=== PATIENT | female | born 1965 | race Caucasian/White ===

== ENCOUNTER 2021-10-17 19:42 | Emergency (ER) | payer BC, SELFPAY ==
[2021-10-17 19:52] VITALS: BP 173/97; PULSE 84; RESP 18; TEMP 36.7; O2SAT 97; BMI 45.1
--- NOTE | 2021-10-17 20:32 | XRR_ITS ---
PROCEDURE INFORMATION: Exam: XR Right Shoulder Exam date and time: 10/17/2021 8:32 PM Age: 56 years old Clinical indication: Pain; Shoulder; Right; Additional info: Pain in shoulder, limited rom TECHNIQUE: Imaging protocol: XR Right shoulder. Views: 2 or more views. COMPARISON: No relevant prior studies available. FINDINGS: Bones/joints: Osseous structures are intact. Negative for fracture. Joint spaces are preserved. Limited internal rotation. Soft tissues: Amorphous calcifications in the region of the greater tuberosity of the humerus. XR/XR shoulder RT min 2V* [id number] IMPRESSION: Amorphous calcifications in the region of the greater tuberosity suggestive of calcific tendinitis.
--- NOTE | 2021-10-17 20:34 | W.ED.EXTPRO ---
HPI - Extremity Problem General: Chief complaint: Extremity Problem,Nontraumatic Stated complaint: RT arm pain Time Seen by Provider: 10/17/21 20:00 History of Present Illness: Patient is a 56-year-old female comes to the ED with right shoulder pain. Symptoms started approximately 5 days ago. She denies any known injury or trauma to cause pain. She says her pain starts in her right shoulder and she has episodes where it radiates down into her forearm. She has limited range of motion in shoulder and can only slightly abduct right arm. Limiting right arm movements helps with pain. Denies any numbness or tingling down right arm. Associated symptoms: Deny chest pain, fever(s) or rash Review of Systems Const: Denies: fever(s), chills or fatigue Eyes: Denies: change in vision or eye discomfort ENMT: Denies: throat pain, odynophagia, nasal discharge or nasal congestion Card: Denies: chest pain, palpitations, edema, swelling of feet/ankles, dyspnea on exertion or orthopnea Resp: Denies: dyspnea, productive cough or non-productive cough GI: Denies: abdominal pain, nausea, vomiting, diarrhea, constipation or hematochezia : Denies: flank pain, dysuria or hematuria Musc: Reports: extremity pain (right shoulder) and limited range of motion (right shoulder); Denies: neck pain, back pain or extremity swelling Skin/Breast: Denies: rash or new lesions Neuro: Denies: headache(s), numbness in extremities or weakness in extremities PFS ED PFSH: Medical History No pertinent family history Surgical History No pertinent past surgical history Physical Exam Const: COMMON NORMALS: no acute distress, patient oriented x3 and alert GENERAL APPEARANCE: cooperative and comfortable HENMT: COMMON NORMALS: normocephalic HEAD & SCALP: normocephalic MOUTH: Normal oral and palatal mucosa present THROAT: posterior oropharynx normal and uvula midline Neck/C-Spine: COMMON NORMALS: supple GENERAL: Yes normal visual inspection Resp: COMMON NORMALS: normal respiratory effort, No retractions, No use of accessory muscles and clear to auscultation bilaterally AUSCULTATION: clear to auscultation bilaterally Cardio: COMMON NORMALS: regular rate, regular rhythm, S1 normal heart sound present, S2 normal heart sound present, No gallops present (Cardio), No clicks present (Cardio), No murmurs present (Cardio) and Peripheral pulses 2+ throughout RATE: regular rate RHYTHM: regular rhythm HEART SOUNDS: S1 normal heart sound present and S2 normal heart sound present PERIPHERAL PULSES: Peripheral pulses 2+ throughout GI: COMMON NORMALS: Normal to inspection, nondistended, normoactive bowel sounds present, Soft to palpation, non-tender and no masses PALPATION: Yes Soft to palpation : COMMON NORMALS: Yes no CVA tenderness BLADDER/KIDNEY EXAM: Yes no CVA tenderness Back/Pelvis: COMMON NORMALS: no CVA tenderness Extremity: RIGHT UPPER EXTREMITY: Yes shoulder joint Right shoulder: Yes Right shoulder joint inspection exam (No visible deformity or swelling seen. Tenderness over AC joint), Yes palpation, Yes Right shoulder joint ROM exam (Limited abduction due to pain) and Yes Right shoulder joint neurovascular exam (Intact) Neuro: COMMON NORMALS: patient oriented x3 and moves all extremities SENSORIUM/ORIENTATION: Yes alert Skin: GENERAL SKIN EXAM: dry skin Course Vital Signs: Vital signs: Vital Signs Temperature 98.1 F 10/17/21 19:52 Pulse Rate 78 10/17/21 21:28 Respiratory Rate 18 10/17/21 21:28 Blood Pressure 162/91 10/17/21 21:28 Pulse Oximetry 99 10/17/21 21:28 MDM - Extremity (Nontraumatic) Medical Decision Making Patient is a 56-year-old female comes to the ED with right shoulder pain. Denies any injury or trauma to cause acute pain. Pain has been going on now for the last 5 days. It radiates down into her forearm. Vitals are stable. Exam shows right AC joint tenderness. Limited range of motion due to pain. Neurovascular intact. X-ray of right shoulder shows calcific tendinitis of the greater tuberosity. Patient diagnosed with calcific tendinitis of right shoulder and was discharged home with a sling and a prescription for methocarbamol and Tylenol. She was told to follow-up with their PCP in the next 5 to 7 days for reevaluation. Return to ED precautions given. Patient stood agree with plan. Lab Data Radiology Impressions Shoulder X-Ray 10/17/21 20:32 IMPRESSION: Amorphous calcifications in the region of the greater tuberosity suggestive of calcific tendinitis. Discharge Plan Discharge Patient Disposition: Home Clinical Impression: Calcific tendinitis of right shoulder Condition: Stable Prescriptions: New methocarbamol 750 mg tablet 750 mg PO Q8H PRN (Reason: muscle pain) Qty: 20 0RF Tylenol Arthritis Pain 650 mg tablet extended release 650 mg PO Q8H PRN (Reason: pain) Qty: 30 0RF Discharge Orders: Discharge ED (Routine); Ordered 10/17/21 Ordered By: Jairo Yates Discharge Diet: Regular Discharge Activity: Increase activity as tolerated Patient Instructions: Calcific Tendinitis (ED) Activity Restrictions/Additional Instructions: Follow-up with medical provider as directed in the next 5 to 7 days reevaluation. Apply cold pack on shoulder and elbow symptoms. Wear shoulder sling. Make sure to remove arm from shoulder sling at least 4 times a day and do some range of motion exercises to prevent frozen shoulder. Take medications as prescribed. Methocarbamol is a muscle relaxer and can cause some drowsiness so take at night before going to bed. Return to the ER or your medical provider if condition worsens. Please read and understand discharge instructions. Thank you for choosing [facility] for your healthcare needs today. Please realize this is an emergency room and that we are providing you with a medical screening exam and this may not be complete and all inclusive of all the testing and or work up that you may need to determine your ailment or severity of your illness. It is very important that you follow up as instructed or that you return to the Emergency Department should you have concerns or if your condition changes or worsens in any way. 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
[2021-10-17 21:28] VITALS: BP 162/91; PULSE 78; RESP 18; O2SAT 99
== END 2021-10-17 21:29 | disposition home or self-care (01) ==
PROVIDERS: Emergency Provider Physician Assistant
DX: M75.31 Calcific tendinitis of right shoulder (principal)
CPT/HCPCS: 73030; 99283

== ENCOUNTER 2021-12-08 10:41 | Emergency (ER) | payer BC, SELFPAY ==
[2021-12-08 10:56] VITALS: PULSE 80; RESP 16; TEMP 37.1; O2SAT 96
[2021-12-08 11:00] VITALS: BP 162/95
--- NOTE | 2021-12-08 11:10 | XRR_ITS ---
PROCEDURE INFORMATION: Exam: XR Chest Exam date and time: 12/08/2021 11:21 AM Age: 56 years old Clinical indication: Pain; Angina pectoris; Additional info: Chest pain TECHNIQUE: Imaging protocol: XR of the chest. Views: 1 view. COMPARISON: CR (CHEST, ) 10/17/2021 8:38 PM FINDINGS: Lungs: Unremarkable. No consolidation. Pleural spaces: Unremarkable. No pleural effusion. No pneumothorax. Heart/Mediastinum: Unremarkable. No cardiomegaly. Bones/joints: Unremarkable. XR/XR chest 1V portable [id number] IMPRESSION: No acute findings.
--- NOTE | 2021-12-08 11:10 | ECG_ITS ---
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 Measurements Intervals [place] Rate: 86 P: 41 [place]: 212 QRS: 26 QRSD: 91 T: 42 QT: 360 QTc: 431 Interpretive Statements SINUS RHYTHM WITH FIRST DEGREE AV BLOCK LOW QRS VOLTAGE IN PRECORDIAL LEADS [QRS DEFLECTION < 1.0 mV IN CHEST LEADS] No previous ECG available for comparison Electronically Signed On 12-08-2021 22:59:13 CDT by Lisa Chowdary M.D. [id number]
--- NOTE | 2021-12-08 11:32 | W.ED.GENADLT ---
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 Patient says that around 830 this morning, she has had 25 minutes of right-sided dull achy pain. Patient denies any stabbing chest pain, pleuritic chest pain, pressure-like chest pain that is worse with exertion. It is, patient denies any shortness of breath, palpitation, nausea/vomiting, diaphoresis radiation to the arm, shoulder, neck. Patient has no abdominal complaints, diarrhea, melena hematochezia. Patient tells me that 5 years ago she had a prior MO but at that time, she did not have a stent placed. Patient is currently on beta-yamileth for her management. Patient has any smoking, family history of CAD, family history of aneurysm, leg swelling, recent immobilization or travel, or hx of VTE in the past. Onset: 8:30am Duration:25 minutes Location:home Severity:moderate Associated symptoms: Reports chest pain; Deny dyspnea, nausea, rash, palpitations or vomiting Review of Systems Const: Denies: fever(s) or chills Eyes: Denies: change in vision ENMT: Denies: mouth pain Card: Reports: chest pain; Denies: palpitations Resp: Denies: dyspnea or non-productive cough GI: Denies: abdominal pain, nausea, vomiting or diarrhea : Denies: dysuria Musc: Denies: extremity pain Skin/Breast: Denies: rash or new lesions Neuro: Denies: weakness in extremities Psych: Reports: other (Normal mood) Tuan/Lymph: Denies: easy bruising PFSH ED PFSH: Medical History No pertinent family history Surgical History No pertinent past surgical history Social History (Updated 12/08/21 @ 11:34 by Angelica Cardoza MD) Smoking and tobacco status: never smoked Alcohol intake: never Substance/Drug Use: never Physical Exam Const: COMMON NORMALS: alert HENMT: COMMON NORMALS: atraumatic HEAD & SCALP: atraumatic MOUTH: moist mucous membranes not abnormal Eye: COMMON NORMALS: EOMs intact bilaterally and conjunctivae normal CONJUNCTIVA: Yes conjunctivae normal Neck/C-Spine: COMMON NORMALS: full ROM and supple Resp: COMMON NORMALS: normal respiratory effort and clear to auscultation bilaterally AUSCULTATION: clear to auscultation bilaterally Cardio: COMMON NORMALS: regular rate RATE: regular rate OTHER: 2+ radial pulses b/l GI: COMMON NORMALS: Soft to palpation and non-tender PALPATION: Yes Soft to palpation Extremity: COMMON NORMALS: full ROM OTHER: no lower extremity swelling Neuro: SENSORIUM/ORIENTATION: Yes alert MOTOR EXAM: No Abnormal motor strength present and Other motor observations present (no focal motor deficits) Psych: COMMON NORMALS: speech normal SPEECH: Yes normal speech MOOD & AFFECT: Yes euthymic mood Course Vital Signs: Vital signs: Vital Signs Temperature 98.8 F 12/08/21 10:56 Pulse Rate 81 12/08/21 14:22 Respiratory Rate 18 12/08/21 14:22 Blood Pressure 168/96 12/08/21 14:22 Pulse Oximetry 98 12/08/21 14:22 MDM - General Adult Medical Decision Making 56-year-old female with history of prior MO presenting to the emergency room for evaluation of new onset of chest pain at 830 this morning lasting for 25 minutes. Patient's physical exam is unremarkable. EKG is nonischemic x1. Troponin x2 within normal. Patient received aspirin nitro in the emergency room without any further complaints of chest pain. 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 Doubt ACS/PE or other emergent causes of chest pain. No suspicion for aortic dissection given no widened mediastinum, 2+ upper extremity pulses, or tearing pain. No suspicion for PE given no pleuritic chest pain, recent immobilization or surgery hemoptysis, or other VTE risk factors. EKG is non-ischemic. XR normal. At 1:45pm, I performed shared decision-making with patient regarding admission versus discharge today. I discussed if the patient patient's risk factors that she would better off admitted to the hospital. However, patient declined citing desire to have this done outpatient. Patient was tells me that she has to handle her car to her who needs it this afternoon. Patient elects to go home and with close follow-up with cardiology and outpatient stress test. I explained the risks of leaving the hospital today including lethal arrythemia, MO, and even . Patient verbalizes understanding of these discussed risk and elect for the alternative of following up urgently. Patient verbalizes understanding to return for any worsening symptoms including chest pain, dyspnea, fatigue, arm pain/jaw pain/back pain or any new or concerning issues. I have given patient follow up with our rn field case manager to be seen by our outpatient Cardiology for chest pain. Patient aware of a call from our rn field case manager to schedule for appointment(s) and verbalizes understanding of the importance of following up. I have given patient follow up with our rn field case manager to have patient be scheduled for outpatient stress test. Patient aware of a call from our rn field case manager to schedule for appointment(s) and verbalizes understanding of the importance of following up. Rx tylenol PRN pain Disposition: Discharge. Patient counseled regarding diagnostic impression, treatment plan. Patient given ED strict return precautions to return for continuation, worsening, or development of new symptoms. Instructed to f/u w/ PCP regarding symptoms today. Patient verbalized understanding. Lab Data : 12/08/21 11:25 12/08/21 11:25 Radiology Impressions Chest X-Ray 12/08/21 11:10 IMPRESSION: No acute findings. Laboratory Results WBC 5.5 10^3/uL (4.0-10.0) 12/08/21 11:25 RBC 4.36 10^6/uL (4.1-5.3) 12/08/21 11:25 Hgb 13.3 g/dL (11.5-15.3) 12/08/21 11:25 Hct 39.6 % (37.0-47.0) 12/08/21 11:25 MCV 90.8 fl (81-99) 12/08/21 11:25 MCH 30.5 pg (28.0-34.0) 12/08/21 11:25 MCHC 33.6 g/dL (30.0-36.0) 12/08/21 11:25 RDW 12.4 % (12.1-15.1) 12/08/21 11:25 Plt Count 261 10^3/cmm (130-400) 12/08/21 11:25 MPV 10.7 fL (7.4-10.4) H 12/08/21 11:25 Neut % (Auto) 71.0 % 12/08/21 11:25 Lymph % (Auto) 20.2 % 12/08/21 11:25 [place] % (Auto) 6.4 % 12/08/21 11:25 Eos % (Auto) 0.9 % 12/08/21 11:25 Baso % (Auto) 1.1 % 12/08/21 11:25 Neut # (Auto) 3.87 10^3/uL (1.8-7.7) 12/08/21 11:25 Lymph # (Auto) 1.1 10^3/uL (0.8-4.8) 12/08/21 11:25 [place] # (Auto) 0.4 10^3/uL (0.2-0.9) 12/08/21 11: Eos # (Auto) 0.1 10^3/uL (0.0-0.8) 12/08/21 11: Baso # (Auto) 0.1 10^3/uL (0.0-0.1) 12/08/21 11:25 Nucleated RBC % (auto) 0 % 12/08/21 11: Nucleated RBCs # 0.0 /100WBC 12/08/21 11:25 Sodium 135 mmol/L (136-145) L 12/08/21 11:25 Potassium 4.4 mmol/L (3.5-5.1) 12/08/21 11:25 Chloride 99 mmol/L (98-107) 12/08/21 11:25 Carbon Dioxide 25 mmol/L (22-29) 12/08/21 11:25 Anion Gap 15.4 (5-19) 12/08/21 11:25 BUN 11 mg/dL (6-20) 12/08/21 11:25 Creatinine 0.6 mg/dL (0.5-0.9) 12/08/21 11:25 GFR Calculation 102.7 mL/min (90-130) 12/08/21 11:25 Glucose 109 mg/dL (65-115) 12/08/21 11:25 Calculated Osmolality 280 mOsm/kg (285-295) L 12/08/21 11:25 Calcium 9.1 mg/dL (8.5-10.5) 12/08/21 11:25 Troponin T Baseline 8 ng/L (0-10) 12/08/21 11:25 Troponin T 120 Minute 6.23 ng/L (0-10) 12/08/21 13:03 Delta Troponin T -1.77 ABS# (0-10) L 12/08/21 13:03 Imaging Data Other Imaging: Radiologist's impression: [address] [address] XRay Report Signed Patient: Neida Dugan Unit #: [id number] : 1965 Age/Sex: 56 / F ADM Date: 12/08/21 Loc: ER Room/Bed: Attending Dr: Ordering Provider/Ordering MD: Angelica Cardoza MD Date of Service: 12/08/21 Procedure(s): XR chest 1V portable [id number] Accession Number(s): [id number] Report Number: [id number] PROCEDURE INFORMATION: Exam: XR Chest Exam date and time: 12/08/2021 11:21 AM Age: 56 years old Clinical indication: Pain; Angina pectoris; Additional info: Chest pain TECHNIQUE: Imaging protocol: XR of the chest. Views: 1 view. COMPARISON: CR (CHEST, ) 10/17/2021 8:38 PM FINDINGS: Lungs: Unremarkable. No consolidation. Pleural spaces: Unremarkable. No pleural effusion. No pneumothorax. Heart/Mediastinum: Unremarkable. No cardiomegaly. Bones/joints: Unremarkable. XR/XR chest 1V portable [id number] IMPRESSION: No acute findings. ? Dictated By: Bulmaro Gooden MD Signed By: Bulmaro Gooden MD Signed Date/Time: 12/08/21 1240 DD/ 1121 Discharge Plan Discharge Patient Disposition: Home Clinical Impression: Chest pain Condition: Stable Prescriptions: New acetaminophen 500 mg tablet 500 mg PO Q6H PRN (Reason: pain) 5 Days Qty: 20 0RF No Action aspirin 325 mg Tablet 325 mg PO QAM 0RF metoprolol succinate 50 mg tablet extended release 24 hr 50 mg PO QAM 0RF Vitamin C 500 mg Tablet 1,000 mg PO QAM 0RF Vitamin D3 25 mcg (1,000 unit) Capsule 25 mcg PO QAM 0RF Discharge Orders: Discharge ED (Routine); Ordered 12/08/21 Ordered By: Angelica Cardoza Discharge Diet: Advance as tolerated Discharge Activity: Increase activity as tolerated Patient Instructions: Chest Pain (ED) Activity Restrictions/Additional Instructions: Come back to the emergency room if your chest pain worsens, have any fever or chills, worsening shortness of breath, worsening exertional lightheadedness, or any new or concerning complaints. Our rn field case manager will have you follow-up with Cardiology in the next few days. You would be expected to have a phone call with our rn field case manager who will put you on the schedule. You can expect a call from us in the next 2-3 days. If you don't hear from us, call us back in the emergency room at [phone]. 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
[2021-12-08 11:42] LABS: Basophils # 0.1 10^3/uL (0.0-0.1); Basophils % 1.1 %; Eosinophils # 0.1 10^3/uL (0.0-0.8); Eosinophils % 0.9 %; Hematocrit 39.6 % (37.0-47.0); Hemoglobin 13.3 g/dL (11.5-15.3); Lymphocytes # 1.1 10^3/uL (0.8-4.8); Lymphocytes % 20.2 %; Mean Corpuscular HGB Conc 33.6 g/dL (30.0-36.0); Mean Corpuscular Hemoglobin 30.5 pg (28.0-34.0); Mean Corpuscular Volume 90.8 fl (81-99); Mean Platelet Volume 10.7 fL (7.4-10.4); Monocytes # 0.4 10^3/uL (0.2-0.9); Monocytes % 6.4 %; Neutrophils # 3.87 10^3/uL (1.8-7.7); Nucleated Red Blood Cells % 0 %; Platelet Count 261 10^3/cmm (130-400); Red Blood Count 4.36 10^6/uL (4.1-5.3); Red Cell Distribution Width 12.4 % (12.1-15.1); White Blood Count 5.5 10^3/uL (4.0-10.0)
[2021-12-08 12:11] LABS: Troponin(5th) Baseline 8 ng/L (0-10)
[2021-12-08 12:12] LABS: Blood Urea Nitrogen 11 mg/dL (6-20); Calcium 9.1 mg/dL (8.5-10.5); Carbon Dioxide 25 mmol/L (22-29); Chloride 99 mmol/L (98-107); Glomerular Filtration Rate 102.7 mL/min (90-130); Glucose 109 mg/dL (65-115); Osmolality Calculated 280 mOsm/kg (285-295); Sodium 135 mmol/L (136-145)
[2021-12-08 12:14] LABS: Anion Gap 15.4 (5-19); Potassium 4.4 mmol/L (3.5-5.1)
[2021-12-08 13:31] LABS: Troponin 5 2HR 6.23 ng/L (0-10)
[2021-12-08 13:38] VITALS: PULSE 77; RESP 10; O2SAT 95
[2021-12-08 14:07] LABS: Troponin 5 2HR Delta -1.77 ABS# (0-10)
[2021-12-08 14:22] VITALS: BP 168/96; PULSE 81; RESP 18; O2SAT 98
--- NOTE | 2021-12-08 17:10 | ECG_ITS ---
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 Measurements Intervals [place] Rate: 64 P: 4 [place]: 189 QRS: 19 QRSD: 92 T: 38 QT: 394 QTc: 407 Interpretive Statements SINUS RHYTHM Compared to ECG 12/08/2021 11:07:18 First degree AV block no longer present Electronically Signed On 12-08-2021 23:12:07 CDT by Lisa Chowdary M.D. [id number]
--- NOTE | 2021-12-09 11:14 | DCPLANNER ---
Addendum entered by Joanne South 02/16/22 06:15: Patient had a follow up appointment scheduled with heart [facility] - this appointment was cancelled. patient had an out patient stress test scheduled for 02.12.22 - patient did not attend appointment. Addendum entered by Joanne South 12/16/21 14:28: Patient has a follow up appointment scheduled for Friday, January 21, 2022 at 3:[address] Gooden at [facility]. wind plant manager called patient and gave patient the appointment information. Original Note: wind plant manager had message to schedule a follow up appointment for patient with [facility]. wind plant manager sent patients information to the front staff at [facility] for review. Patients information will be printed and reviewed. Clinic will notify manager case management of the scheduled appointment. wind plant manager will call patient with appointment information. wind plant manager also had message to schedule an outpatient stress test. wind plant manager called patient to confirm that patient still wanted the stress test and to confirm who patient sees for her primary care physician. wind plant manager called phone number [phone], unable to speak with patient, a voicemail was left for patient to return manager of case management phone call.
== END 2021-12-08 14:24 | disposition home or self-care (01) ==
PROVIDERS: Emergency Provider Emergency Medicine
DX: R07.9 Chest pain, unspecified (principal); I25.2 Old myocardial infarction
CPT/HCPCS: 71045; 80048; 84484; 85025; 93005; 99284

== ENCOUNTER 2022-06-24 17:08 | Outpatient (CLI) | payer BC, SELFPAY ==
--- NOTE | 2022-06-24 | XRR_ITS ---
PROCEDURE INFORMATION: Exam: XR Lumbosacral Spine Exam date and time: 06/24/2022 5:38 PM Age: 57 years old Clinical indication: Low back pain; Additional info: Low back pain- TECHNIQUE: Imaging protocol: Radiologic exam of the lumbosacral spine. Views: 2 or 3 views. COMPARISON: No relevant prior studies available. FINDINGS: Bones/joints: No acute fracture. Grade 1 anterolisthesis of L4 on L5. Moderate multilevel degenerative changes throughout the lower thoracic and lumbar spine with multilevel disc space narrowing and endplate osteophyte formation as well as lower lumbar facet arthropathy. Soft tissues: Unremarkable. XR/XR lumbar spine f/e only [id number] IMPRESSION: No acute findings. 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
== END 2022-06-24 17:09 | disposition home or self-care (01) ==
LOC: RAD 17:09
PROVIDERS: Visit Provider Nurse Practitioner
DX: M47.896 Other spondylosis, lumbar region (principal); M54.50 Low back pain, unspecified
CPT/HCPCS: 72120

== ENCOUNTER → 2023-01-13 14:28 | Outpatient (BNVA) | payer BC, SELFPAY | PROVIDERS: PCP Nurse Practitioner; Visit Provider Nurse Practitioner | DX: M25.512 Pain in left shoulder (principal) | CPT/HCPCS: 73030 ==

== ENCOUNTER 2023-10-04 23:42 | Emergency (ER) | payer BC, SELFPAY ==
--- NOTE | 2023-10-04 23:47 | XRR_ITS ---
PROCEDURE INFORMATION: Exam: XR Chest Exam date and time: 10/04/2023 11:53 PM Age: 58 years old Clinical indication: Chest wall pain; Additional info: Chest pain TECHNIQUE: Imaging protocol: Radiologic exam of the chest. Views: 1 view. COMPARISON: CR XR chest 1V portable [id number] 12/08/2021 11:21 AM FINDINGS: Lungs: Unremarkable. No consolidation. Pleural spaces: Unremarkable. No pleural effusion. No pneumothorax. Heart/Mediastinum: Unremarkable. No cardiomegaly. Bones/joints: There is right rotator cuff calcific tendinosis. XR/XR chest 1V portable [id number] IMPRESSION: No acute cardiopulmonary process.
[2023-10-04 23:48] VITALS: BP 159/88; PULSE 74; RESP 20; TEMP 36.4; O2SAT 99; BMI 33.3
--- NOTE | 2023-10-04 23:49 | ECG_ITS ---
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 Measurements Intervals [place] Rate: 75 P: 62 [place]: 223 QRS: 80 QRSD: 87 T: 61 QT: 378 QTc: 424 Interpretive Statements SINUS RHYTHM WITH FIRST DEGREE AV BLOCK INTERPRETATION BASED ON A DEFAULT AGE OF 40 YEARS Compared to ECG 12/08/2021 13:06:08 First degree AV block now present Electronically Signed On 10-06-2023 16:29:13 TECHNICAL SUPPORT COORDINATOR by Yogi Greene M.D. [id number]
--- NOTE | 2023-10-05 00:04 | W.ED.ABDPA2 ---
HPI - Abdominal Pain General: Chief Complaint: Abdominal Pain Stated Complaint: cp, indagestion Time Seen by Provider: 10/04/23 23:47 History of Present Illness: Patient presents to the ER with chest pain and indigestion. Patient describes this as epigastric pain that began about 2100. Patient states the pain has been constant ever since describes as a burning and pressure. Patient states she does get this very often but thinks he may have ate something that triggered it tonight. Patient denies any cardiac history other than high blood pressure. Patient denies any nausea vomiting shortness of breath diaphoresis. Review of Systems General: Reports: 10 or more systems reviewed and unremarkable except in HPI and below PFSH ED PFSH: Medical History No pertinent family history Surgical History No pertinent past surgical history Social History Smoking and tobacco/nicotine status: never used tobacco/nicotine Alcohol intake: never Substance/Drug Use: never Physical Exam Const: COMMON NORMALS: no acute distress, average body habitus, patient oriented x3, no limitations, healthy appearing, alert and well nourished HENMT: COMMON NORMALS: normocephalic, atraumatic, hearing grossly normal bilaterally, external ears normal, Normal external nose present, moist oral mucous membranes and oropharynx normal HEAD & SCALP: normocephalic and atraumatic NOSE: Normal external nose present EXTERNAL EAR: Yes external ears normal Neck/C-Spine: COMMON NORMALS: no JVD Chest: COMMONS NORMALS: normal inspection of the chest and normal palpation of entire chest wall Resp: COMMON NORMALS: normal respiratory effort, No retractions, No use of accessory muscles and clear to auscultation bilaterally AUSCULTATION: clear to auscultation bilaterally Cardio: COMMON NORMALS: no JVD, regular rate, regular rhythm, S1 normal heart sound present, S2 normal heart sound present, No gallops present (Cardio), No clicks present (Cardio), No murmurs present (Cardio) and No rub (Cardio) RATE: regular rate RHYTHM: regular rhythm HEART SOUNDS: S1 normal heart sound present and S2 normal heart sound present GI: COMMON NORMALS: Normal to inspection, nondistended, normoactive bowel sounds present, Soft to palpation, No hepatosplenomegaly present and no masses; negative for non-tender (Mildly tender to palpate epigastric) PALPATION: Yes Soft to palpation and Yes No hepatosplenomegaly present Neuro: COMMON NORMALS: patient oriented x3 SENSORIUM/ORIENTATION: Yes alert Course Vital Signs: Vital signs: Vital Signs Temperature 97.6 F 10/04/23 23:48 Pulse Rate 72 10/05/23 00:49 Respiratory Rate 16 10/05/23 00:49 Blood Pressure 142/106 10/05/23 00:49 Pulse Oximetry 97 10/05/23 00:49 Oxygen Delivery Me thod Room Air 10/04/23 23:48 MDM - Abdominal Pain Medical Decision Making Patient was evaluated that had lab workup as well as chest x-ray and abdomen pelvis CT scan. Lab work was essentially benign except for elevated liver enzymes. Chest x-ray showed no acute cardiopulmonary process, abdomen and pelvic CT showed cholelithiasis with suggestive findings of acute cholecystitis. Dr. Ramirez was consulted who agreed to place patient inpatient and we will start her on Zosyn and Toradol and make her n.p.o. Differential Diagnosis Likely abdominal pain; Unlikely acute appendicitis, calculus of kidney, constipation, diverticulitis, endometriosis, gastroenteritis, pancreatitis or small bowel obstruction Medical Records I reviewed the patient's medical records. Lab Data I reviewed the patient's lab results. 10/05/23 00:09 10/05/23 00:09 Labs/Radiology: Radiology Impressions Chest X-Ray 10/04/23 23:47 IMPRESSION: No acute cardiopulmonary process. Abdomen/Pelvis CT 10/05/23 00:51 IMPRESSION: 1. Cholelithiasis with mild surrounding pericholecystic fluid suggestive of acute cholecystitis. 2. Diverticulosis of colon with no changes of diverticulitis. COMMENTS: Consistent with the [place] [employer] [employer]'s Incidental Findings Committee white paper (J Am Caden Radiol 2018): Any incidental renal lesion less than 1 cm or classified as too small to characterize, or any incidental cystic renal lesion characterized as simple-appearing, is likely benign. No follow-up imaging is recommended for these lesions per consensus recommendations based on imaging criteria. Laboratory Results WBC 6.54 10^3/uL (3.29-11.43) 10/05/23 00:09 RBC 4.38 10^6/uL (3.85-5.65) 10/05/23 00:09 Hgb 13.40 g/dL (11.27-16.99) 10/05/23 00:09 Hct 39.8 % (36-47) 10/05/23 00:09 MCV 90.9 fl (85-98) 10/05/23 00:09 MCH 30.6 pg (27-33) 10/05/23 00:09 MCHC 33.7 g/dL (30-55) 10/05/23 00:09 RDW 12.2 % (12.1-15.1) 10/05/23 00:09 Plt Count 225 10^3/cmm (157-399) 10/05/23 00:09 MPV 10.4 fL (7.4-10.4) 10/05/23 00:09 Neut % (Auto) 63.4 % 10/05/23 00:09 Lymph % (Auto) 28.0 % 10/05/23 00:09 [place] % (Auto) 6.1 % 10/05/23 00:09 Eos % (Auto) 2.0 % 10/05/23 00:09 Baso % (Auto) 0.5 % 10/05/23 00:09 Neut # (Auto) 4.15 10^3/uL (1.8-7.7) 10/05/23 00:09 Lymph # (Auto) 1.8 10^3/uL (0.8-4.8) 10/05/23 00:09 [place] # (Auto) 0.4 10^3/uL (0.2-0.9) 10/05/23 00:09 Eos # (Auto) 0.1 10^3/uL (0.0-0.8) 10/05/23 00:09 Baso # (Auto) 0.0 10^3/uL (0.0-0.1) 10/05/23 00:09 Nucleated RBC % (auto) 0 % 10/05/23 00:09 Nucleated RBCs # 0.0 /100WBC 10/05/23 00:09 Sodium 143 mmol/L (136-145) 10/05/23 00:09 Potassium 3.9 mmol/L (3.5-5.1) 10/05/23 00:09 Chloride 104 mmol/L (98-107) 10/05/23 00:09 Carbon Dioxide 28 mmol/L (22-29) 10/05/23 00:09 Anion Gap 14.9 (5-19) 10/05/23 00:09 BUN 17 mg/dL (8-23) 10/05/23 00:09 Creatinine 0.8 mg/dL (0.5-0.9) 10/05/23 00:09 GFR Calculation 73.2 mL/min (90-130) L 10/05/23 00:09 Glucose 106 mg/dL (65-115) 10/05/23 00:09 Calculated Osmolality 298 mOsm/kg (285-295) H 10/05/23 00:09 Calcium 9.3 mg/dL (8.5-10.5) 10/05/23 00:09 Total Bilirubin 0.4 mg/dL (0.15-1.2) 10/05/23 00:09 AST 186 U/L (0-32) H 10/05/23 00:09 ALT 102 U/L (0-33) H 10/05/23 00:09 Alkaline Phosphatase 112 U/L (35-105) H 10/05/23 00:09 Troponin T Baseline < 6 ng/L (0-10) 10/05/23 00:09 Total Protein 6.7 g/dL (6.6-8.7) 10/05/23 00:09 Albumin 3.9 g/dL (3.5-5.2) 10/05/23 00:09 Globulin 2.8 g/dL (1.3-4.6) 10/05/23 00:09 All radiology interpretation(s) finalized by discharge EKG Data EKG 1: I personally reviewed and interpreted this EKG as follows: EKG interpretation date: 10/04/23 EKG interpretation time: 23:49 Prior EKG tracings: not available for review Interpretation: EKG shows ventricular rate 75 bpm, IA interval 1223, QRS duration 87, QTc of 407, sinus rhythm with first-degree AV block, Discharge Plan Discharge Patient Disposition: Admitted As Inpatient Clinical Impression: Acute cholecystitis Condition: Stable Coding Level of Care Code 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
[2023-10-05 00:19] LABS: Basophils % 0.5 %; Eosinophils # 0.1 10^3/uL (0.0-0.8); Hematocrit 39.8 % (36-47); Lymphocytes # 1.8 10^3/uL (0.8-4.8); Mean Corpuscular HGB Conc 33.7 g/dL (30-55); Mean Corpuscular Hemoglobin 30.6 pg (27-33); Mean Corpuscular Volume 90.9 fl (85-98); Mean Platelet Volume 10.4 fL (7.4-10.4); Monocytes # 0.4 10^3/uL (0.2-0.9); Monocytes % 6.1 %; Neutrophils # 4.15 10^3/uL (1.8-7.7); Neutrophils % 63.4 %; Nucleated Red Blood Cells % 0 %; Platelet Count 225 10^3/cmm (157-399); Red Blood Count 4.38 10^6/uL (3.85-5.65); Red Cell Distribution Width 12.2 % (12.1-15.1); White Blood Count 6.54 10^3/uL (3.29-11.43)
[2023-10-05 00:35] LABS: Troponin(5th) Baseline < 6 ng/L (0-10)
[2023-10-05 00:38] LABS: Alanine Aminotransferase 102 U/L (0-33); Albumin Level 3.9 g/dL (3.5-5.2); Alkaline Phosphatase 112 U/L (35-105); Anion Gap 14.9 (5-19); Aspartate Amino Transferase 186 U/L (0-32); Blood Urea Nitrogen 17 mg/dL (8-23); Calcium 9.3 mg/dL (8.5-10.5); Carbon Dioxide 28 mmol/L (22-29); Chloride 104 mmol/L (98-107); Creatinine Clr Calc Pharmacy 83.2141; Globulin 2.8 g/dL (1.3-4.6); Glomerular Filtration Rate 73.2 mL/min (90-130); Glucose 106 mg/dL (65-115); Osmolality Calculated 298 mOsm/kg (285-295); Potassium 3.9 mmol/L (3.5-5.1); Sodium 143 mmol/L (136-145); Total Bilirubin 0.4 mg/dL (0.15-1.2); Total Protein 6.7 g/dL (6.6-8.7)
[2023-10-05] MEDS: lidocaine 2% viscous 15 ML, aluminum-mag hydrox-simethicon 30 ML, sucralfate oral liq 1 GM PO (00:48)
[2023-10-05 00:49] VITALS: BP 142/106; PULSE 72; RESP 16; O2SAT 97
--- NOTE | 2023-10-05 00:51 | CTR_ITS ---
PROCEDURE INFORMATION: Exam: CT Abdomen And Pelvis With Contrast Exam date and time: 10/05/2023 1:06 AM Age: 58 years old Clinical indication: Abdominal pain; Localized; Upper; Additional info: Ruq/epigastric pain, elevated lfts TECHNIQUE: Imaging protocol: Computed tomography of the abdomen and pelvis with contrast. Radiation optimization: All CT scans at this facility use at least one of these dose optimization techniques: automated exposure control; mA and/or kV adjustment per patient size (includes targeted exams where dose is matched to clinical indication); or iterative reconstruction. Contrast material: OMNI 350; Contrast volume: 100 ml; Contrast route: INTRAVENOUS (IV); COMPARISON: CR XR lumbar spine f/e only [id number] 06/24/2022 5:38 PM RADIATION DOSE METRICS: Total DLP (mGy-cm): 1178 FINDINGS: Lungs: There are atelectatic changes in the lingula. Diaphragm: Small hiatal hernia. Liver: Normal. No mass. Gallbladder and bile ducts: There are gallstones with mild gallbladder wall thickening and minimal surrounding fat stranding. No biliary dilatation. Pancreas: Normal. No ductal dilation. Spleen: Normal. No splenomegaly. Adrenal glands: Normal. No mass. Kidneys and ureters: There is a 1 cm simple cyst in the lower pole of the left kidney and a 1 cm simple cyst in the upper pole of the right kidney. No hydronephrosis. Stomach and bowel: There is diverticulosis of the transverse colon, sigmoid colon and descending colon with no changes of diverticulitis. Appendix: No evidence of appendicitis. Intraperitoneal space: Unremarkable. No free air. No significant fluid collection. Vasculature: There are vascular calcifications. There is pelvic phleboliths. Lymph nodes: Unremarkable. No enlarged lymph nodes. Urinary bladder: Unremarkable as visualized. Reproductive: Unremarkable as visualized. Bones/joints: There is a mild curvature of the lumbar spine convex to the right. There is mild degenerative of bilateral hip joints. There is multilevel mild degenerative disease of the lumbar spine with mild L4 over L5 anterolisthesis and mild L2 over L3 retrolisthesis. Soft tissues: There is a fat containing left inguinal hernia. There is left gluteus calcific tendinosis. CT/CT abdomen pelvis w con* [id number] IMPRESSION: 1. Cholelithiasis with mild surrounding pericholecystic fluid suggestive of acute cholecystitis. 2. Diverticulosis of colon with no changes of diverticulitis. COMMENTS: Consistent with the [place] [employer]'s Incidental Findings Committee white paper (J Am Caden Radiol 2018): Any incidental renal lesion less than 1 cm or classified as too small to characterize, or any incidental cystic renal lesion characterized as simple-appearing, is likely benign. No follow-up imaging is recommended for these lesions per consensus recommendations based on imaging criteria.
[2023-10-05] MEDS: iohexol 350 mg/mL 500 mL Btl (per mL) IV (01:10)
[2023-10-05] MEDS: piperacillin-tazobactam 3.375 GM in sodium chloride 0.9% (plus) 50 ML IV (02:04)
[2023-10-05] MEDS: ketorolac 30 mg/mL INJ IVP (02:07)
[2023-10-05 02:15] VITALS: BP 142/106; PULSE 72; RESP 16; TEMP 36.4; O2SAT 97
== END 2023-10-05 02:25 | disposition left against medical advice (07) ==
PROVIDERS: Emergency Provider Emergency Medicine; PCP Nurse Practitioner
DX: K81.9 Cholecystitis, unspecified (principal)
CPT/HCPCS: 71045; 74177; 80053; 84484; 85025; 93005; 96374; 96375; 99285; J1885; J2543; Q9967

== ENCOUNTER 2024-11-14 21:03 | Emergency (ER) | payer BC, SELFPAY ==
[2024-11-14 21:05] VITALS: BP 178/110; PULSE 76; RESP 18; TEMP 36.7; O2SAT 100; BMI 36.8
--- NOTE | 2024-11-14 21:08 | ECG_ITS ---
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 Measurements Intervals [place] Rate: 76 P: 78 ME: 205 QRS: 51 QRSD: 77 T: 69 QT: 359 QTc: 404 Interpretive Statements SINUS RHYTHM Compared to ECG 10/04/2023 23:49:22 First degree AV block no longer present Electronically Signed On 11-15-2024 22:17:00 CDT by Lisa Chowdary M.D. [id number] [id number]
[2024-11-14 21:14] VITALS: BP 178/110; PULSE 76; RESP 18; O2SAT 100
--- NOTE | 2024-11-14 21:18 | ECG_ITS ---
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 Measurements Intervals [place] Rate: 60 P: 3 NH: 188 QRS: 11 QRSD: 73 T: 36 QT: 382 QTc: 384 Interpretive Statements SINUS RHYTHM LOW QRS VOLTAGE IN PRECORDIAL LEADS [QRS DEFLECTION < 1.0 mV IN CHEST LEADS] ST ELEVATION, CONSIDER INFERIOR INJURY [MARKED ST ELEVATION W/O NORMALLY INFLECTED T-WAVE IN II/aVF] ACUTE UT Compared to ECG 10/04/2023 23:49:22 Low QRS voltage now present ST (T wave) deviation now present Myocardial infarct finding now present First degree AV block no longer present Electronically Signed On 11-15-2024 22:08:04 CDT by Lisa Chowdary M.D. [id number] [id number]
--- NOTE | 2024-11-14 21:42 | W.ED.CHESTPA ---
Documented by User: Prashant Albarran DO 11/14/24 22:47 HPI - Chest Pain General: Chief Complaint: Chest Pain Stated Complaint: chest pain, nausea Time Seen by Provider: 11/14/24 21:39 Source: patient and family (Spouse) Mode of arrival: ambulatory Limitations: no limitations History of Present Illness: This patient made her way to the emergency department this evening accompanied by her spouse. They both provide the history as to her presentation this evening. She apparently had had some discomfort in her upper abdomen lower chest today and then when her awoke approximately 6 PM in anticipation of going to work this evening she made him aware of her symptoms. She states she took her usual medications which include metoprolol and baby aspirin this morning. She states that she did not eat anything differently today than she normally does. She apparently is has a questionable history of whether she has gallbladder disease according to the and had a similar occurrence last year. There was a question of whether she has had a prior [place] many years ago but they are not able to provide much in the way of additional information. She apparently did not have stents at that time or any other intervention. She is a non-smoker does not drink alcohol. She denies any known history of reflux or peptic ulcer disease. No history of pancreatitis. Has had no abdominal surgeries. She denies any fevers or cough or diaphoresis nausea etc. associated with her current presentation. Pain location: epigastric Pain radiation: none Associated symptoms: Reports no associated symptoms; Deny dyspnea, fever(s), nausea, palpitations, syncope or vomiting Treatment prior to arrival: aspirin Related Data Home Medications ?Medication ?Instructions ?Recorded ?Confirmed ascorbic acid (vitamin C) 500 mg 1,000 mg PO QAM 12/08/21 12/08/21 tablet (Vitamin C) aspirin 325 mg tablet 325 mg PO QAM 12/08/21 12/08/21 cholecalciferol (vitamin D3) 25 25 mcg PO QAM 12/08/21 12/08/21 mcg (1,000 unit) capsule (Vitamin D3) metoprolol succinate 50 mg 50 mg PO QAM 12/08/21 12/08/21 tablet,extended release 24 hr Allergies Allergy/AdvReac Type Severity Reaction Status Date / Time codeine Allergy Unknown Verified 11/14/24 21:10 seafood Allergy ALGY-Rash Uncoded 10/04/23 23:55 Review of Systems Const: Denies: fever(s) or chills ENMT: Denies: throat pain, odynophagia, nasal discharge or nasal congestion Card: Denies: palpitations, syncope, pre-syncope or dyspnea on exertion Resp: Denies: dyspnea, productive cough or non-productive cough GI: Denies: nausea, vomiting or diarrhea : Denies: flank pain, difficulty voiding or dysuria Musc: Denies: neck pain, back pain, extremity pain or extremity swelling Skin/Breast: Denies: rash Neuro: Denies: headache(s), numbness in extremities or weakness in extremities Psych: Reports: anxiety; Denies: depression or mood swings Endo: Denies: polyuria or polydipsia PFSH ED PFSH: Medical History No pertinent family history Surgical History No pertinent past surgical history Social History Smoking and tobacco/nicotine status: never used tobacco/nicotine Alcohol intake: never Substance/Drug Use: never Physical Exam Narrative: EXAM NARRATIVE: She appears to be somewhat anxious but generally answers questions in a goal-directed fashion. She is in no acute distress. She is cooperative. Const: COMMON NORMALS: no acute distress, patient oriented x3 and alert GENERAL APPEARANCE: cooperative and comfortable NUTRITIONAL APPEARANCE: overweight HENMT: COMMON NORMALS: normocephalic, Normal nasal mucous membranes and turbinates present, moist oral mucous membranes and oropharynx normal HEAD & SCALP: normocephalic NOSE: Normal nasal mucous membranes and turbinates present Eye: COMMON NORMALS: Equal, round and reactive pupils present, EOMs intact bilaterally, conjunctivae normal and no scleral icterus CONJUNCTIVA: Yes conjunctivae normal PUPIL: Yes Equal, round and reactive pupils present Neck/C-Spine: COMMON NORMALS: full ROM, no lymphadenopathy, no JVD and No carotid bruits Chest: COMMONS NORMALS: normal inspection of the chest and normal palpation of entire chest wall Resp: COMMON NORMALS: normal respiratory effort, No retractions, No use of accessory muscles and clear to auscultation bilaterally EFFORT & INSPECTION: Yes able to speak in complete sentences AUSCULTATION: clear to auscultation bilaterally Cardio: COMMON NORMALS: no JVD, regular rate, regular rhythm, No murmurs present (Cardio) and Peripheral pulses 2+ throughout RATE: regular rate RHYTHM: regular rhythm PERIPHERAL PULSES: Peripheral pulses 2+ throughout GI: COMMON NORMALS: Normal to inspection, nondistended, normoactive bowel sounds present OTHER: She has minimal tenderness to palpation in the epigastrium in the upper abdomen without rebound or guarding. She has no other abdominal wall tenderness. No palpable masses. Back/Pelvis: COMMON NORMALS: thoracic and lumbar spine normal to inspection, no thoracic nor lumbar tenderness and thoraco-lumbar ROM normal Extremity: COMMON NORMALS: normal to inspection, full ROM, capillary refill normal, no calf tenderness and no pedal edema Neuro: COMMON NORMALS: patient oriented x3, moves all extremities, no focal motor deficits and no sensory deficits noted SENSORIUM/ORIENTATION: Yes alert Psych: COMMON NORMALS: mental status grossly normal Skin: COMMON NORMALS: no rashes or lesions noted, no wounds and turgor normal GENERAL SKIN EXAM: no rashes or lesions noted and turgor normal Course Reevaluation(s): Reevaluation #1: Patient's blood pressure is noted to be elevated even after switching her to a large cuff. She apparently has been on metoprolol for many years but they have no concept of whether her blood pressure has been controlled as they do not monitor at home. Given her current blood pressure I think is reasonable for us to go ahead and give her a dose of a calcium channel yamileth as her pulse rate is currently in the 70s. Her initial troponin troponin is reassuring however given some of the uncertainty of her symptoms I think it is reasonable for us to do a serial 2-hour troponin to ensure that there is no delta and that there is no evidence of ACS. Time: 22:20 Reevaluation #2: Pressure starting to trend down with the single dose amlodipine. We will continue to monitor her and await his 2-hour troponin to ensure that there is no delta at that time. I discussed anticipated course and the need for close follow-up for determination if adjust additional medication adjustments are indicated for her blood pressure. I will turn this patient over to Dr. Ahumada for disposition. Time: 22:46 Vital Signs: Vital signs: Vital Signs Temperature 98.1 F 11/14/24 21:05 Pulse Rate 64 11/15/24 00:00 Respiratory Rate 13 11/14/24 22:30 Blood Pressure 172/96 11/15/24 00:00 Pulse Oximetry 98 11/15/24 00:00 Oxygen Delivery Me thod Room Air 11/14/24 21:05 MDM - Chest Pain Medical Decision Making This patient presented to the emergency department, with her spouse as noted in the HPI. She had symptoms of epigastric and lower chest discomfort that seemingly had a couple of episodes throughout the day and then her became aware those approximately 6 PM when he awoke for his evening shift and her symptoms persisted and they made their way to the emergency department as noted. There was a history of what sounds like biliary colic approximately 1 year ago but those symptoms never returned after leaving the emergency department in September 2023 and her current symptoms are not the same as that according to both spouse and patient. Her clinical exam did not reveal any stigmata of acute serious condition at this time but workup was pursued to evaluate for ACS, arrhythmia etc. Medical Records I reviewed the patient's medical records. Patient has a history of being evaluated emergency department on September 2023 and found to have suggestion of paracolic fluid on CT scan and according to the ED note on that date was admitted to the hospital however there is no admission note, progress notes or subsequent discharge summary reflecting that occurrence. I reviewed that information with the patient and spouse and they informed me that at the time there had been no discussion of admission to the hospital with the patient and his spouse and they declined to pursue that course of action at that time. She went home at that time and made some dietary changes and did not have any subsequent symptoms whatsoever regarding her right upper quadrant. Lab Data I reviewed the patient's lab results. 11/14/24 21:34 11/14/24 21:34 Radiology Impressions Chest X-Ray 11/14/24 22:30 IMPRESSION: No acute findings. Laboratory Results WBC 4.98 10^3/uL (3.29-11.43) 11/14/24: RBC 4.69 10^6/uL (3.85-5.65) 11/14/24 21:34 Hgb 14.60 g/dL (11.27-16.99) 11/14/24 21: Hct 43.4 % (36-47) 11/14/24: MCV 92.5 fl (85-98) 11/14/24 21:34 MCH 31.1 pg (27-33) 11/14/24 21: MCHC 33.6 g/dL (30-55) 11/14/24 21: RDW 12.1 % (12.1-15.1) 11/14/24 21:34 Plt Count 247 10^3/cmm (157-399) 11/14/24 21: MPV 10.7 fL (7.4-10.4) H 11/14/24 21: Neut % (Auto) 60.7 % 11/14/24 21: Lymph % (Auto) 29.5 % 11/14/24: Howell % (Auto) 7.2 % 11/14/24: Eos % (Auto) 1.8 % 11/14/24: Baso % (Auto) 0.8 % 11/14/24: Neut # (Auto) 3.02 10^3/uL (1.8-7.7) 11/14/24: Lymph # (Auto) 1.5 10^3/uL (0.8-4.8) 11/14/24: Howell # (Auto) 0.4 10^3/uL (0.2-0.9) 11/14/24: Eos # (Auto) 0.1 10^3/uL (0.0-0.8) 11/14/24: Baso # (Auto) 0.0 10^3/uL (0.0-0.1) 11/14/24: Nucleated RBC % (auto) 0 % 11/14/24: Nucleated RBCs # 0.0 /100WBC 11/14/24 21: Sodium 141 mmol/L (136-145) 11/14/24 21: Potassium 4.5 mmol/L (3.5-5.1) 11/14/24 21: Chloride 103 mmol/L (98-107) 11/14/24 21: Carbon Dioxide 26 mmol/L (22-29) 11/14/24 21: Anion Gap 16.5 (5-19) 11/14/24: BUN 20 mg/dL (8-23) 11/14/24 21:34 Creatinine 1.0 mg/dL (0.5-0.9) H 11/14/24 21:34 GFR Calculation 56.4 mL/min (90-130) L 11/14/24 21:34 Glucose 114 mg/dL (65-115) 11/14/24 21:34 Calculated Osmolality 295 mOsm/kg (285-295) 11/14/24 21:34 Calcium 9.3 mg/dL (8.5-10.5) 11/14/24 21:34 Total Bilirubin 0.3 mg/dL (0.15-1.2) 11/14/24 21:34 AST 17 U/L (0-32) 11/14/24 21:34 ALT 17 U/L (0-33) 11/14/24 21:34 Alkaline Phosphatase 76 U/L (35-105) 11/14/24 21:34 Troponin T Baseline < 6 ng/L (0-10) 11/14/24 21:34 Troponin T 120 Minute 8.99 ng/L (0-10) 11/14/24 23:45 Delta Troponin T [id number] ABS# (0-10) 11/14/24 23:45 Total Protein 7.4 g/dL (6.6-8.7) 11/14/24 21:34 Albumin 4.3 g/dL (3.5-5.2) 11/14/24 21:34 Globulin 3.1 g/dL (1.3-4.6) 11/14/24 21:34 Lipase 51 U/L (13-60) 11/14/24 21:34 EKG Data EKG 1: I personally reviewed and interpreted this EKG as follows: Interpretation: Contemporaneous review of resting EKG reveals ventricular rate of 76 bpm. Normal MI interval, normal QRS duration, normal corrected QT interval. Normal axis. No acute ST-T wave changes noted. Compared with EKG on 10/24/2023 first-degree AV block is no longer present. Discharge Plan Discharge Patient Disposition: Home Clinical Impression: Chest pain Qualifiers: Chest pain type: unspecified Qualified Code(s): R07.9 - Chest pain, unspecified Hypertension Qualifiers: Hypertension type: unspecified Qualified Code(s): I10 - Essential (primary) hypertension Condition: Stable Prescriptions: No Action aspirin 325 mg Tablet 325 mg PO QAM metoprolol succinate 50 mg tablet extended release 24 hr 50 mg PO QAM Vitamin C 500 mg Tablet 1,000 mg PO QAM Vitamin D3 25 mcg (1,000 unit) Capsule 25 mcg PO QAM Discharge Orders: Discharge ED (Routine); Ordered 11/15/24 Ordered By: Gail Arriola Referrals: [facility], [facility] [Primary Care Provider] - 1 week (Blood pressure monitoring and medication adjustments) Discharge Diet: Low Salt Discharge Activity: Increase activity as tolerated Patient Instructions: Noncardiac Chest Pain (ED), Opioid Safety, Pain Management Activity Restrictions/Additional Instructions: Thank you for choosing [facility] for your healthcare needs today. Please realize this is an emergency room and that we are providing you with a medical screening exam and this may not be complete and all inclusive of all the testing and or work up that you may need to determine your ailment or severity of your illness. You have been screened and evaluated and felt safe for discharge. Health conditions do change or evolve sometimes and as such it is important that you follow up with your Primary Doctor to be re checked, 3-5 days is a general good time frame for follow up. 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 [employer] Documented by User: Gail Arriola MD 11/15/24 00:57 HPI - Chest Pain General: Chief Complaint: Chest Pain Stated Complaint: chest pain, nausea Time Seen by Provider: 11/14/24 21:39 Related Data Home Medications ?Medication ?Instructions ?Recorded ?Confirmed ascorbic acid (vitamin C) 500 mg 1,000 mg PO QAM 12/08/21 12/08/21 tablet (Vitamin C) aspirin 325 mg tablet 325 mg PO QAM 12/08/21 12/08/21 cholecalciferol (vitamin D3) 25 25 mcg PO QAM 12/08/21 12/08/21 mcg (1,000 unit) capsule (Vitamin D3) metoprolol succinate 50 mg 50 mg PO QAM 12/08/21 12/08/21 tablet,extended release 24 hr Allergies Allergy/AdvReac Type Severity Reaction Status Date / Time codeine Allergy Unknown Verified 11/14/24 21:10 seafood Allergy ALGY-Rash Uncoded 10/04/23 23:55 [facility] ED PFSH: Medical History No pertinent family history Surgical History No pertinent past surgical history Social History Smoking and tobacco/nicotine status: never used tobacco/nicotine Alcohol intake: never Substance/Drug Use: never Course Vital Signs: Vital signs: Vital Signs Temperature 98.1 F 11/14/24 21:05 Pulse Rate 64 11/15/24 00:00 Respiratory Rate 13 11/14/24 22:30 Blood Pressure 172/96 11/15/24 00:00 Pulse Oximetry 98 11/15/24 00:00 Oxygen Delivery Me thod Room Air 11/14/24 21:05 MDM - Chest Pain Medical Records Patient has a history of being evaluated emergency department on September 2023 and found to have suggestion of paracolic fluid on CT scan and according to the ED note on that date was admitted to the hospital however there is no admission note, progress notes or subsequent discharge summary reflecting that occurrence. I reviewed that information with the patient and spouse and they informed me that at the time there had been no discussion of admission to the hospital with the patient and his spouse and they declined to pursue that course of action at that time. She went home at that time and made some dietary changes and did not have any subsequent symptoms whatsoever regarding her right upper quadrant. Patient care transitioned me at shift change awaiting final troponin. This is negative. Patient has been discharged home. Lab Data 11/14/24 21:34 11/14/24 21:34 Radiology Impressions Chest X-Ray 11/14/24 22:30 IMPRESSION: No acute findings. Laboratory Results WBC 4.98 10^3/uL (3.29-11.43) 11/14/24 21:34 RBC 4.69 10^6/uL (3.85-5.65) 11/14/24 21: Hgb 14.60 g/dL (11.27-16.99) 11/14/24: Hct 43.4 % (36-47) 11/14/24: MCV 92.5 fl (85-98) 11/14/24 21: MCH 31.1 pg (27-33) 11/14/24: MCHC 33.6 g/dL (30-55) 11/14/24: RDW 12.1 % (12.1-15.1) 11/14/24: Plt Count 247 10^3/cmm (157-399) 11/14/24: MPV 10.7 fL (7.4-10.4) H 11/14/24: Neut % (Auto) 60.7 % 11/14/24: Lymph % (Auto) 29.5 % 11/14/24: Howell % (Auto) 7.2 % 11/14/24: Eos % (Auto) 1.8 % 11/14/24: Baso % (Auto) 0.8 % 11/14/24: Neut # (Auto) 3.02 10^3/uL (1.8-7.7) 11/14/24: Lymph # (Auto) 1.5 10^3/uL (0.8-4.8) 11/14/24: Howell # (Auto) 0.4 10^3/uL (0.2-0.9) 11/14/24: Eos # (Auto) 0.1 10^3/uL (0.0-0.8) 11/14/24: Baso # (Auto) 0.0 10^3/uL (0.0-0.1) 11/14/24: Nucleated RBC % (auto) 0 % 11/14/24: Nucleated RBCs # 0.0 /100WBC 11/14/24 21: Sodium 141 mmol/L (136-145) 11/14/24 21: Potassium 4.5 mmol/L (3.5-5.1) 11/14/24: Chloride 103 mmol/L (98-107) 11/14/24 21:34 Carbon Dioxide 26 mmol/L (22-29) 11/14/24 21:34 Anion Gap 16.5 (5-19) 11/14/24 21:34 BUN 20 mg/dL (8-23) 11/14/24 21:34 Creatinine 1.0 mg/dL (0.5-0.9) H 11/14/24 21:34 GFR Calculation 56.4 mL/min (90-130) L 11/14/24 21:34 Glucose 114 mg/dL (65-115) 11/14/24 21:34 Calculated Osmolality 295 mOsm/kg (285-295) 11/14/24 21:34 Calcium 9.3 mg/dL (8.5-10.5) 11/14/24 21:34 Total Bilirubin 0.3 mg/dL (0.15-1.2) 11/14/24 21:34 AST 17 U/L (0-32) 11/14/24 21:34 ALT 17 U/L (0-33) 11/14/24 21:34 Alkaline Phosphatase 76 U/L (35-105) 11/14/24 21:34 Troponin T Baseline < 6 ng/L (0-10) 11/14/24 21:34 Troponin T 120 Minute 8.99 ng/L (0-10) 11/14/24 23:45 Delta Troponin T [id number] ABS# (0-10) 11/14/24 23:45 Total Protein 7.4 g/dL (6.6-8.7) 11/14/24 21:34 Albumin 4.3 g/dL (3.5-5.2) 11/14/24 21:34 Globulin 3.1 g/dL (1.3-4.6) 11/14/24 21:34 Lipase 51 U/L (13-60) 11/14/24 21:34 All radiology interpretation(s) finalized by discharge Discharge Plan Discharge Patient Disposition: Home Clinical Impression: Chest pain Qualifiers: Chest pain type: unspecified Qualified Code(s): R07.9 - Chest pain, unspecified Hypertension Qualifiers: Hypertension type: unspecified Qualified Code(s): I10 - Essential (primary) hypertension Condition: Stable Prescriptions: No Action aspirin 325 mg Tablet 325 mg PO QAM metoprolol succinate 50 mg tablet extended release 24 hr 50 mg PO QAM Vitamin C 500 mg Tablet 1,000 mg PO QAM Vitamin D3 25 mcg (1,000 unit) Capsule 25 mcg PO QAM Discharge Orders: Discharge ED (Routine); Ordered 11/15/24 Ordered By: Gail Arriola Referrals: [facility], [facility] [Primary Care Provider] - 1 week (Blood pressure monitoring and medication adjustments) Discharge Diet: Low Salt Discharge Activity: Increase activity as tolerated Patient Instructions: Noncardiac Chest Pain (ED), Opioid Safety, Pain Management Activity Restrictions/Additional Instructions: Thank you for choosing [facility] for your healthcare needs today. Please realize this is an emergency room and that we are providing you with a medical screening exam and this may not be complete and all inclusive of all the testing and or work up that you may need to determine your ailment or severity of your illness. You have been screened and evaluated and felt safe for discharge. Health conditions do change or evolve sometimes and as such it is important that you follow up with your Primary Doctor to be re checked, 3-5 days is a general good time frame for follow up. 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
[2024-11-14 21:54] LABS: Basophils % 0.8 %; Eosinophils # 0.1 10^3/uL (0.0-0.8); Eosinophils % 1.8 %; Hematocrit 43.4 % (36-47); Lymphocytes # 1.5 10^3/uL (0.8-4.8); Lymphocytes % 29.5 %; Mean Corpuscular HGB Conc 33.6 g/dL (30-55); Mean Corpuscular Hemoglobin 31.1 pg (27-33); Mean Corpuscular Volume 92.5 fl (85-98); Mean Platelet Volume 10.7 fL (7.4-10.4); Monocytes # 0.4 10^3/uL (0.2-0.9); Monocytes % 7.2 %; Neutrophils # 3.02 10^3/uL (1.8-7.7); Neutrophils % 60.7 %; Nucleated Red Blood Cells % 0 %; Platelet Count 247 10^3/cmm (157-399); Red Blood Count 4.69 10^6/uL (3.85-5.65); Red Cell Distribution Width 12.1 % (12.1-15.1); White Blood Count 4.98 10^3/uL (3.29-11.43)
[2024-11-14 22:12] LABS: Troponin(5th) Baseline < 6 ng/L (0-10)
[2024-11-14 22:14] VITALS: BP 190/111; PULSE 72; RESP 12; O2SAT 92
[2024-11-14 22:14] LABS: Alanine Aminotransferase 17 U/L (0-33); Albumin Level 4.3 g/dL (3.5-5.2); Alkaline Phosphatase 76 U/L (35-105); Anion Gap 16.5 (5-19); Aspartate Amino Transferase 17 U/L (0-32); Blood Urea Nitrogen 20 mg/dL (8-23); Calcium 9.3 mg/dL (8.5-10.5); Carbon Dioxide 26 mmol/L (22-29); Chloride 103 mmol/L (98-107); Creatinine Clr Calc Pharmacy 69.2928; Globulin 3.1 g/dL (1.3-4.6); Glomerular Filtration Rate 56.4 mL/min (90-130); Glucose 114 mg/dL (65-115); Lipase 51 U/L (13-60); Osmolality Calculated 295 mOsm/kg (285-295); Potassium 4.5 mmol/L (3.5-5.1); Sodium 141 mmol/L (136-145); Total Bilirubin 0.3 mg/dL (0.15-1.2); Total Protein 7.4 g/dL (6.6-8.7)
[2024-11-14 22:30] VITALS: BP 180/97; PULSE 64; RESP 13; O2SAT 91
--- NOTE | 2024-11-14 22:30 | XRR_ITS ---
PROCEDURE INFORMATION: Exam: XR Chest Exam date and time: 11/14/2024 10:43 PM Age: 59 years old Clinical indication: Pain; Chest pressure; Additional info: Cp TECHNIQUE: Imaging protocol: Radiologic exam of the chest. Views: 1 view. COMPARISON: CR XR chest 1V portable [id number] 10/04/2023 11:53 PM FINDINGS: Lungs: Unremarkable. No consolidation. Pleural spaces: Unremarkable. No pleural effusion. No pneumothorax. Heart/Mediastinum: Unremarkable. No cardiomegaly. Bones/joints: Unremarkable. XR/XR chest 1V portable [id number] IMPRESSION: No acute findings.
[2024-11-14] MEDS: amlodipine 5 mg Tablet PO (22:31)
[2024-11-14 23:00] VITALS: BP 183/106
[2024-11-14] MEDS: famotidine 20 mg/2 mL INJ 40 MG IVP (23:16)
[2024-11-14 23:30] VITALS: BP 183/101
[2024-11-15] VITALS: BP 172/96; PULSE 64; O2SAT 98
[2024-11-15 00:08] LABS: Troponin 5 2HR 8.99 ng/L (0-10); Troponin 5 2HR Delta 2.99001 ABS# (0-10)
[2024-11-15 01:20] VITALS: PULSE 78; O2SAT 98
== END 2024-11-15 01:22 | disposition home or self-care (01) ==
PROVIDERS: Emergency Provider Emergency Medicine; PCP Nurse Practitioner
DX: R07.9 Chest pain, unspecified (principal); I10 Essential (primary) hypertension; Z79.82 Long term (current) use of aspirin
CPT/HCPCS: 36415; 71045; 80053; 83690; 84484; 85025; 93005; 96374; 99285; J3490; J9999